=== PATIENT | male | born 2000 | race Two or more races ===

== ENCOUNTER 2021-02-12 20:51 | Emergency (ER) | payer OTHER, MEDICAID ==
[~2021-02-12] VITALS: Ht 182.9 cm; Wt 85.0 kg
[2021-02-12 23:42] LABS: CHLORIDE 106 mEq/L (98-107)
[2021-02-12 23:46] LABS: ETHANOL BLOOD < 10 mg/dL; HEMATOCRIT. 45.3 % (42.0-52.0); HEMOGLOBIN. 15.4 g/dL (14.0-18.0); MEAN CORPUSCULAR HEMOGLOBIN 28.5 pg (28.0-32.0); MEAN CORPUSCULAR VOLUME 84.2 fL (80.0-94.0); MEAN PLATELET VOLUME 10.2 fl (7.4-10.4); PLATELET 210 x1000/uL (130-400); RED BLOOD CELL COUNT 5.39 mill/uL (4.7-6.1); RED CELL DISTRIBUTION WIDTH 13.6 % (11.6-14.6)
[2021-02-13 01:25] LABS: PLATELET ESTIMATE NORMAL
[2021-02-13 07:22] VITALS: BP 99/52
== END 2021-02-13 09:21 | disposition home or self-care (01) ==
LOC: ER 20:51
DX: F23 Brief psychotic disorder (principal); F91.8 Other conduct disorders; F12.10 Cannabis abuse, uncomplicated; I49.8 Other specified cardiac arrhythmias; Z78.1 Physical restraint status
CPT/HCPCS: 36415; 80053; 80307; 80320; 80329; 84443; 85025; 93005; 99285; G0480

== ENCOUNTER 2022-12-22 00:15 | Emergency (ER) | payer MEDICAID, OTHER ==
[~2022-12-22] VITALS: Ht 172.7 cm; Wt 75.0 kg
[2022-12-22 00:17] VITALS: O2SAT 98
[2022-12-22 01:50] LABS: BASOPHILS % 0.4 % (0.0-2.0); DIFFERENTIAL COMMENT 0; EOSINOPHILS % 0.6 % (0.0-5.0); HEMATOCRIT. 45.6 % (42.0-52.0); HEMOGLOBIN. 15.9 g/dL (14.0-18.0); LYMPHOCYTES % 11.1 % (20.0-50.0); MEAN CORPUSCULAR HGB CONC 34.9 g/dL (31.0-37.0); MEAN CORPUSCULAR VOLUME 85.8 fL (80.0-94.0); MEAN PLATELET VOLUME 9.9 fl (7.4-10.4); MONOCYTES % 6.4 % (2.0-8.0); NEUTROPHILS % 81.5 % (40.0-76.0); PLATELET 208 x1000/uL (130-400); RED BLOOD CELL COUNT 5.31 mill/uL (4.7-6.1); RED CELL DISTRIBUTION WIDTH 13.4 % (11.6-14.6); WHITE BLOOD COUNT 17.5 x1000/uL (4.5-11.0)
[2022-12-22 02:09] LABS: CHLORIDE 106 mEq/L (98-107); INDEX HEMOLYSI 2 (1-3); INDEX ICTERIC 1 (1-4); INDEX LIPEMIC 1 (1-3); POTASSIUM 3.7 mEq/L (3.5-5.1); SODIUM 141 mEq/L (136-145)
[2022-12-22 02:21] LABS: ALANINE AMINOTRANSFERASE 102 IU/L (13-61); ALBUMIN 4.2 g/dL (3.4-5.0); ASPARTATE AMINOTRANSFERASE 154 IU/L (15-37); BILIRUBIN TOTAL 1.1 mg/dL (0.1-1.0); CALCIUM 8.9 mg/dL (8.5-10.1); CREATININE 0.9 mg/dL (0.6-1.3); ETHANOL BLOOD 26 mg/dL (<10); GLUCOSE 100 mg/dL (70-105); PROTEIN TOTAL 8.1 g/dL (6.0-8.3); UREA NITROGEN BLOOD 15 mg/dL (7-21)
[2022-12-22] MEDS ORDERED: NALO4SPR BOTHNSTRLS (02:21)
[2022-12-22 03:00] VITALS: BP 117/66; PULSE 108; RESP 21; TEMP 98.4
[2022-12-22 11:16] LABS: CARBON DIOXIDE 22 mEq/L (21-32)
== END 2022-12-22 03:00 | disposition home or self-care (01) ==
LOC: ER 00:35
DX: T40.411A Poisoning by fentanyl or fentanyl analogs, accidental (unintentional), initial encounter (principal); R41.82 Altered mental status, unspecified; F12.10 Cannabis abuse, uncomplicated; X58.XXXA Exposure to other specified factors, initial encounter
CPT/HCPCS: 80053; 80320; 85025; 36415; 99283; Z7610; G0480

== ENCOUNTER 2024-03-15 02:13 | Emergency (ER) | payer MEDICAID, OTHER ==
[~2024-03-15] VITALS: Ht 175.3 cm; Wt 91.0 kg
[~2024-03-15 02:13] MED LIST: NALO4SPR BOTHNSTRLS
[2024-03-15 02:18] VITALS: O2SAT 97
[2024-03-15] MEDS ORDERED: NALO4SPR BOTHNSTRLS (04:55)
[2024-03-15 06:02] VITALS: BP 108/62; PULSE 70; RESP 18; TEMP 36.72516; O2SAT 99
== END 2024-03-15 06:25 | disposition home or self-care (01) ==
LOC: ER 02:13
DX: T40.2X1A Poisoning by other opioids, accidental (unintentional), initial encounter (principal); F17.200 Nicotine dependence, unspecified, uncomplicated; I49.9 Cardiac arrhythmia, unspecified; Z98.890 Other specified postprocedural states; Y92.9 Unspecified place or not applicable
CPT/HCPCS: 71045; 93005; 99283